=== PATIENT | male | born 1960 | race Caucasian/White ===

== ENCOUNTER 2025-08-18 15:12 | Emergency (ER) | payer OTHER, SELFPAY ==
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
[2025-08-18 15:52] VITALS: BP 132/77; BP 152/98; PULSE 80; PULSE 94; RESP 16; TEMP 36.6; O2SAT 100; O2SAT 94; BMI 33.5
[2025-08-18 15:57] VITALS: BP 132/77; PULSE 80; RESP 18; TEMP 36.6; O2SAT 94
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
[2025-08-18 18:16] VITALS: BP 136/70; PULSE 83; RESP 16; TEMP 36.7; O2SAT 95
[2025-08-18 21:04] VITALS: BP 138/82; PULSE 78; RESP 16; TEMP 36.7; O2SAT 97
== END 2025-08-18 21:07 | disposition home or self-care (01) ==
PROVIDERS: Emergency Provider Emergency Medicine; PCP Internal Medicine
DX: S49.92XA Unspecified injury of left shoulder and upper arm, initial encounter (principal); R42 Dizziness and giddiness; M79.602 Pain in left arm; V43.52XA Car driver injured in collision with other type car in traffic accident, initial encounter; Y93.9 Activity, unspecified; Y92.410 Unspecified street and highway as the place of occurrence of the external cause; Y99.8 Other external cause status
CPT/HCPCS: 70450; 99284

== ENCOUNTER → 2025-08-18 16:53 | Outpatient (BNV) | payer OTHER, SELFPAY | PROVIDERS: Emergency Provider Emergency Medicine; PCP Internal Medicine; Visit Provider Student in an Organized Health Care Education/Training Program | DX: R42 Dizziness and giddiness (principal); V89.2XXA Person injured in unspecified motor-vehicle accident, traffic, initial encounter | CPT/HCPCS: 70450 ==